=== PATIENT | male | born 1980 ===

== ENCOUNTER → 2019-01-23 | Outpatient (CLI) | payer OTHER ==
--- NOTE | 2019-01-23 13:55 | US ---
EXAMINATION TYPE: US scrotum with doppler. Grayscale and color Doppler Duplex imaging performed of hailey maharaj scrotum. DATE OF EXAM: 01/23/2019 COMPARISON: NONE CLINICAL HISTORY: N45.1 Epididymitis. Left scrotal pain x 1 month; denies fever, chills; has prescrip tion for antibiotic to be filled today EXAM MEASUREMENTS: TESTICLES: homogeneous appearance bilaterally Right Testicle: 3.6 x 2.9 x 2.2 cm Left Testicle: 3.8 x 2.8 x 2.1 cm EPIDIDYMIS HEAD: Right Epididymis: 0.5 x 0.9 x 0.7 cm Left Epididymis: 0.8 x 0.6 x 1.2 cm Doppler performed to assess for testicular vascularity; good bilateral color flow and waveforms are s een. There is no evidence of testicular torsion. Presence of hydroceles: none seen Presence of varicoceles: noted at right testicle with dilated veins = 3.2mm in neutral position (a bnormal as greater than 2.5mm) IMPRESSION: 1. Small amount of varices may be present at the right testicle. 2. Testicular ultrasound is otherwise unremarkable.
== END | disposition home or self-care (01) ==
LOC: RADUSWWP 12:59
PROVIDERS: ATTEND Nurse Practitioner Adult Health
DX: N45.1 Epididymitis (principal)
CPT/HCPCS: 76870; 93975